=== PATIENT | female | born 1975 | race Caucasian/White ===

== ENCOUNTER 2019-01-24 13:04 | Emergency (ER) | payer OTHER ==
[2019-01-24 13:44] LABS: Urine Blood 2+ (NEG); Urine Glucose NEGATIVE (NEG); Urine Protein TRACE (NEG); Urine Specific Gravity 1.025 (1.005-1.030)
--- NOTE | 2019-01-24 13:58 | RAD REPORT ---
EXAM DESCRIPTION: CT - Stone Protocol - 01/24/2019 1:37 pm CLINICAL HISTORY: Abdominal pain. Lower right lower quadrant pain COMPARISON: None. TECHNIQUE: Computed axial tomography of the abdomen pelvis was obtained without oral or IV contrast. Lack of IV and oral contrast limits evaluation of solid organs, bowel, and vessels. Coronal reformat kisha images were obtained and reviewed. All CT scans are performed using dose optimization technique as appropriate and may include automated exposure control or mA/KV adjustment according to patient size. FINDINGS: Small bilateral renal calculi. Mild right hydronephrosis. . Dilated right ureter. 3.5 mill imeter calculus right ureteral vesicle junction. The liver, spleen, pancreas and adrenals appear grossly normal There is no evidence of diverticulitis. The appendix appears normal Small umbilical hernia IMPRESSION: 3.5 millimeter calculus right ureterovesical junction resulting in mild right hydronephr osis
[2019-01-24 14:12] LABS: Absolute Lymphocytes (CBC) 1.4 K/uL (0.7-4.9); Absolute Monocytes 0.5 K/uL (0.1-1.3); Absolute Neutrophil 5.4 K/uL (1.8-8.0); Eosinophils % 2.8 % (0-4.4); Hematocrit 40.8 % (36.0-45.0); Lymphocytes % 18.7 % (15.3-44.8); MPV 8.2 fL (7.6-11.3); Monocytes % 6.6 % (3.3-12.3); RBC Red Blood Cell Count 4.39 M/uL (3.86-4.86)
[2019-01-24 14:20] LABS: Potassium 3.5 mmol/L (3.5-5.1)
[2019-01-24] MEDS ORDERED: KETOROLAC 30 MG/ML INJ ONE (14:42)
[2019-01-24] MEDS ORDERED: TAMSULOSIN 0.4 MG SR CAP ONE (14:42)
[2019-01-24] MEDS ORDERED: MAGNESIUM SULFATE 1 gm IVPB 1 GM/100 ML BAG IV ONE (14:42)
--- NOTE | 2019-01-24 14:52 | EDPHYS ---
Physician Documentation [facility] Name: Gurmeet Kruger Age: 43 yrs Sex: Female : 1975 Arrival Date: 01/24/2019 Time: 13:08 Bed 7 Private MD: ED Physician Josep Gerber HPI: 01/24 15:28 This 43 yrs old Female presents to ER via Ambulatory with complaints of Back kb Pain, Abdominal Pain. 15:33 The patient complains of pain in the right flank. The pain radiates to the right lower kb quadrant. Onset: The symptoms/episode began/occurred 2 hour(s) ago. Modifying factors: The symptoms are alleviated by nothing. the symptoms are aggravated by palpation/percussion. Associated signs and symptoms: The patient has no apparent associated signs or symptoms. Severity of pain: At its worst the pain was moderate in the emergency department the pain is unchanged. The patient has not experienced similar symptoms in the past. The patient has not recently seen a physician. Historical: - Allergies: 13:10 No Known Allergies; hj - Home Meds: 13:10 None [Active]; hj - PMHx: 13:10 None; hj - PSHx: 13:10 Hysterectomy; hj - Ebola Screening: : No symptoms or risks identified at this time. ROS: 15:27 Constitutional: Negative for fever, chills, and weight loss, ENT: Negative for injury, kb pain, and discharge, Neck: Negative for injury, pain, and swelling, Cardiovascular: Negative for chest pain, palpitations, and edema, Respiratory: Negative for shortness of breath, cough, wheezing, and pleuritic chest pain, : Negative for injury, bleeding, discharge, and swelling, MS/Extremity: Negative for injury and deformity, Skin: Negative for injury, rash, and discoloration, Neuro: Negative for headache, weakness, numbness, tingling, and seizure. 15:27 Abdomen/GI: Positive for abdominal pain. 15:27 Back: Positive for flank pain, on the right. Exam: 15:27 Constitutional: This is a well developed, well nourished patient who is awake, alert, kb and in no acute distress. Head/Face: Normocephalic, atraumatic. Chest/axilla: Normal chest wall appearance and motion. Nontender with no deformity. No lesions are appreciated. Cardiovascular: Regular rate and rhythm with a normal S1 and S2. No gallops, murmurs, or rubs. Normal PMI, no JVD. No pulse deficits. Respiratory: Lungs have equal breath sounds bilaterally, clear to auscultation and percussion. No rales, rhonchi or wheezes noted. No increased work of breathing, no retractions or nasal flaring. Skin: Warm, dry with normal turgor. Normal color with no rashes, no lesions, and no evidence of cellulitis. MS/ Extremity: Pulses equal, no cyanosis. Neurovascular intact. Full, normal range of motion. Neuro: Awake and alert, GCS 15, oriented to person, place, time, and situation. Cranial nerves II-XII grossly intact. Motor strength 5/5 in all extremities. Sensory grossly intact. Cerebellar exam normal. Normal gait. 15:27 Abdomen/GI: Inspection: abdomen appears normal, Bowel sounds: normal, in all quadrants, Palpation: mild abdominal tenderness, in the right lower quadrant. 15:28 Back: CVA tenderness, that is moderate, is noted on the right. kb Vital Signs: 13:10 BP 126 / 96; Pulse 83; Resp 18; Temp 98.0(TE); Pulse Ox 99% on R/A; Weight 104.33 kg; hj Height 5 ft. 10 in. (177.80 cm); Pain 8/10; 15:00 BP 119 / 87; Pulse 78; Resp 16 S; Pulse Ox 99% on R/A; aa5 13:10 Body Mass Index 33.00 (104.33 kg, 177.80 cm) MDM: 13:12 Patient medically screened. kb 14:51 Data reviewed: vital signs, nurses notes. Data interpreted: Pulse oximetry: on room air kb is 99 %. Interpretation: normal. Counseling: I had a detailed discussion with the patient and/or guardian regarding: the historical points, exam findings, and any diagnostic results supporting the discharge/admit diagnosis, lab results, radiology results, the need for outpatient follow up, a urologist, to return to the emergency department if symptoms worsen or persist or if there are any questions or concerns that arise at home. 01/24 13:24 Order name: Urine Dipstick--Ancillary (enter results); Complete Time: 13:45 eb 01/24 13:24 Order name: Urine --Ancillary (enter results); Complete Time: 13:45 eb 01/24 13:24 Order name: CBC with Diff; Complete Time: 14:25 kb 01/24 13:24 Order name: Basic Metabolic Panel; Complete Time: 14:25 kb 01/24 13:24 Order name: CT Stone Protocol; Complete Time: 13:59 kb 01/24 13:13 Order name: Urine Dipstick-Ancillary (obtain specimen); Complete Time: 13:27 kb 01/24 13:24 Order name: IV Start; Complete Time: 13:58 kb Administered Medications: 14:30 Drug: TORadol 30 mg Route: IVP; Site: right antecubital; aa5 14:40 Follow up: Response: No adverse reaction aa5 14:30 Drug: Flomax 0.4 mg Route: PO; aa5 15:35 Follow up: Response: No adverse reaction aa5 14:31 Drug: Magnesium Sulfate 1 grams Route: IVPB; Infused Over: 1 hrs; Site: right aa5 antecubital; 15:35 Follow up: Response: No adverse reaction; IV Status: Completed infusion aa5 Disposition: 16:46 Co-signature as Attending Physician, Josep Gerber MD. Disposition: 01/24/19 14:51 Discharged to Home. Impression: Calculus of kidney and ureter. - Condition is Stable. - Discharge Instructions: Kidney Stones, [id number], Dietary Guidelines to Help Prevent Kidney Stones. - Prescriptions for Tylenol- Codeine #3 300-30 mg Oral Tablet - take 1 tablet by ORAL route every 6 hours As needed; 15 tablet. Zofran 4 mg Oral Tablet - take 1 tablet by ORAL route every 6 hours As needed; 20 tablet. Flomax 0.4 mg Oral Capsule, Sust. Release 24 hr - take 1 capsule by ORAL route once daily 1/2 hour following the same meal each day; 10 capsule. Diclofenac Sodium 75 mg Oral Tablet, Delayed Release (E.C.) - take 1 tablet by ORAL route 2 times per day As needed; 30 tablet. Macrobid 100 mg Oral Capsule - take 1 capsule by ORAL route every 12 hours for 7 days; 14 capsule. - Medication Reconciliation Form, Thank You Letter, Antibiotic Education, Prescription Opioid Use form. - Follow up: Emergency Department; When: As needed; Reason: Worsening of condition. Follow up: Private Physician; When: 2 - 3 days; Reason: Recheck today's complaints, Continuance of care, Re-evaluation by your physician. Signatures: Dispatcher [employer] Harmony Mosquera, NITHIN NAVARRO-Kristan Seals, RN RN aa5 Anthony Ochoa RN RN Josep Gerber MD MD Corrections: (The following items were deleted from the chart) 15:51 14:51 01/24/2019 14:51 Discharged to Home. Impression: Calculus of kidney and ureter. aa5 Condition is Stable. Forms are Medication Reconciliation Form, Thank You Letter, Antibiotic Education, Prescription Opioid Use. Follow up: Emergency Department; When: As needed; Reason: Worsening of condition. Follow up: Private Physician; When: 2 - 3 days; Reason: Recheck today's complaints, Continuance of care, Re-evaluation by your physician. kb
--- NOTE | 2019-01-24 14:52 | ER ---
Nurse's Notes [facility] Name: Gurmeet Kruger Age: 43 yrs Sex: Female : 1975 Arrival Date: 01/24/2019 Time: 13:08 Bed 7 Private MD: Diagnosis: Calculus of kidney and ureter Presentation: 01/24 13:08 Presenting complaint: Patient states: i have this pain on my R lower back that moves to the groin area; reports nausea; pain is 8/10; denies trauma to the area; reports chills;. Transition of care: patient was not received from another setting of care. Onset of symptoms was January 24, 2019. Risk Assessment: Do you want to hurt yourself or someone else? Patient reports no desire to harm self or others. Initial Sepsis Screen: Does the patient meet any 2 criteria? No. Patient's initial sepsis screen is negative. Does the patient have a suspected source of infection? No. Patient's initial sepsis screen is negative. Care prior to arrival: None. 13:08 Method Of Arrival: Ambulatory 13:08 Acuity: SOCRATES 3 hj Historical: - Allergies: 13:10 No Known Allergies; hj - Home Meds: 13:10 None [Active]; hj - PMHx: 13:10 None; hj - PSHx: 13:10 Hysterectomy; hj - Ebola Screening: : No symptoms or risks identified at this time. Screenin:40 Abuse screen: Denies threats or abuse. Nutritional screening: No deficits noted. aa5 Tuberculosis screening: No symptoms or risk factors identified. Fall Risk None identified. Assessment: 13:20 General: Appears comfortable, Behavior is calm, cooperative. Pain: Complains of pain in aa5 right low back Pain radiates to right groin Pain currently is 8 out of 10 on a pain scale. Quality of pain is described as sharp, Is continuous. Neuro: Level of Consciousness is awake, alert, obeys commands, Oriented to person, place, time, situation. Cardiovascular: Heart tones S1 S2 present Rhythm is regular. Respiratory: Airway is patent Respiratory effort is even, unlabored, Respiratory pattern is regular, symmetrical. GI: Abdomen is round Bowel sounds present X 4 quads. Abd is soft and non tender X 4 quads. Reports nausea, Patient currently denies vomiting. : Denies burning with urination, inability to void, urinary frequency, urgency. EENT: No signs and/or symptoms were reported regarding the EENT system. Derm: Skin is pink, warm \T\ dry. Musculoskeletal: Range of motion: intact in all extremities. 14:30 Reassessment: Patient is alert, oriented x 3, equal unlabored respirations, skin aa5 warm/dry/pink. 15:45 Reassessment: Patient is alert, oriented x 3, equal unlabored respirations, skin aa5 warm/dry/pink. Vital Signs: 13:10 BP 126 / 96; Pulse 83; Resp 18; Temp 98.0(TE); Pulse Ox 99% on R/A; Weight 104.33 kg; hj Height 5 ft. 10 in. (177.80 cm); Pain 8/10; 15:00 BP 119 / 87; Pulse 78; Resp 16 S; Pulse Ox 99% on R/A; aa5 13:10 Body Mass Index 33.00 (104.33 kg, 177.80 cm) hj ED Course: 13:08 Patient arrived in ED. hj 13:09 Triage completed. hj 13:10 Arm band placed on right wrist. hj 13:12 Harmony Grossman FNP-C is PHCP. kb 13:12 Josep Gerber MD is Attending Physician. kb 13:13 Kristan Cohen, DANE is Primary Nurse. aa5 13:20 Patient has correct armband on for positive identification. Placed in gown. Bed in low aa5 position. Call light in reach. Side rails up X2. 13:37 CT Stone Protocol In Process Unspecified. EDMS 13:54 Initial lab(s) drawn, by me, sent to lab. Inserted saline lock: 22 gauge in right jb1 antecubital area, using aseptic technique. Blood collected. 15:45 No provider procedures requiring assistance completed. IV discontinued, intact, aa5 bleeding controlled, No redness/swelling at site. Pressure dressing applied. Administered Medications: 14:30 Drug: TORadol 30 mg Route: IVP; Site: right antecubital; aa5 14:40 Follow up: Response: No adverse reaction aa5 14:30 Drug: Flomax 0.4 mg Route: PO; aa5 15:35 Follow up: Response: No adverse reaction aa5 14:31 Drug: Magnesium Sulfate 1 grams Route: IVPB; Infused Over: 1 hrs; Site: right aa5 antecubital; 15:35 Follow up: Response: No adverse reaction; IV Status: Completed infusion aa5 Outcome: 14:51 Discharge ordered by MD. hagan 15:45 Discharged to home ambulatory. aa5 15:45 Condition: stable 15:45 Discharge instructions given to patient, Instructed on discharge instructions, follow up and referral plans. medication usage, Demonstrated understanding of instructions, follow-up care, medications, Prescriptions given X 5 15:51 Patient left the ED. aa5 Signatures: Dispatcher [employer] EDMS Chandana Eagle jb1 Harmony Grossman, KINDERGARTEN ASSISTANT-C KINDERGARTEN ASSISTANT-Kristan Seals, RN RN aa5 Anthony Ochoa, DANE RN Corrections: (The following items were deleted from the chart) 13:11 13:10 Pulse 83bpm; Resp 18bpm; Pulse Ox 99% RA; Temp 98.0F Temporal; 104.33 kg; Height hj 5 ft. 10 in.; BMI: 33.0; Pain 8/10; hj
== END 2019-01-24 15:51 | disposition home or self-care (01) ==
LOC: ER 13:04
DX: N20.0 Calculus of kidney (principal); N20.1 Calculus of ureter
CPT/HCPCS: 36415; 74176; 76377; 80048; 81003; 81025; 85025; 96365; 96375; 99284; J3475